=== PATIENT | female | born 1990 | race Caucasian/White ===

== ENCOUNTER 2018-03-02 00:26 | Emergency (ER) | payer OTHER ==
[~2018-03-02] VITALS: Ht 167.6 cm; Wt 99.8 kg
[2018-03-02 00:26] VITALS: BP 132/78
--- NOTE | 2018-03-02 00:26 | NUR ---
BIBA to bed 6. Pt teary eyed, but calm and cooperative. Alert and oriented x 4. Denies physical complaints. Suicide precautions implemented. All belongs removed. All ligature removed from room.
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
[2018-03-02 00:51] LABS: BASOPHILS # (AUTO) 0.1 K/uL (0.00-0.22); BASOPHILS % (AUTO) 0.9 % (0.0-2.0); EOSINOPHILS # (AUTO) 0.3 K/uL (0-0.4); EOSINOPHILS % (AUTO) 2.6 % (0.0-4.0); HEMATOCRIT 41.7 % (36-48); HEMOGLOBIN 14.3 g/dL (12.0-16.0); LYMPHOCYTES % (AUTO) 18.6 % (20.5-51.1); MEAN CORPUSCULAR HEMOGLOBIN 31 pg (27-31); MEAN CORPUSCULAR HGB CONC 34 g/dL (33-37); MEAN CORPUSCULAR VOLUME 89.4 fL (80-94); MONOCYTES # (AUTO) 0.9 K/uL (0.8-1.0); MONOCYTES % (AUTO) 7.8 % (1.7-9.3); NEUTROPHILS # (AUTO) 7.7 K/uL (1.8-7.7); NEUTROPHILS % (AUTO) 70.1 % (42.2-75.2); PLATELET COUNT (AUTO) 329 K/uL (140-450); RED BLOOD CELL COUNT(AUTO) 4.67 MIL/uL (4.20-5.40); RED CELL DISTRIBUTION WIDTH 13.8 % (11.6-13.7); WHITE BLOOD COUNT (AUTO) 10.9 K/uL (4.8-10.8)
[2018-03-02 01:00] LABS: ANION GAP 14.9 (8-16); CARBON DIOXIDE 28.9 mmol/L (21-32); CHLORIDE 105 mmol/L (98-107); CREATININE 0.9 mg/dL (0.6-1.3); GFR ARICAN-AMERICAN 97 mL/min (>90); GLUCOSE 78 mg/dL (74-106); POTASSIUM 3.8 mmol/L (3.5-5.1); SODIUM SERUM 145 mmol/L (136-145); UREA NITROGEN, BLOOD 10 mg/dL (7-18)
[2018-03-02 01:06] LABS: ALBUMIN 3.5 g/dL (3.4-5.0); ASPARTATE AMINOTRANSFERASE 10 U/L (15-37); SALICYLATE < 2.8 mg/dL (2.8-20.0); TOTAL BILIRUBIN 0.5 mg/dL (0.0-1.0)
[2018-03-02 01:07] LABS: ACETAMINOPHEN < 0.5 ug/ml (10-30)
--- NOTE | 2018-03-02 01:34 | NUR ---
Dr. Escalona evaluating patient at bedside.
--- NOTE | 2018-03-02 02:00 | NUR ---
PT IN BED RESTING. DR VOGEL AT BEDSIDE EVALUATING PT. PT IS COOPERATIVE. VSS. CONTINUE TO MONITOR.
[2018-03-02] MEDS ORDERED: buPROPion 75 MG TAB PO ONE (02:20)
[2018-03-02] MEDS ORDERED: LORazepam 0.5 MG TAB PO ONE (02:20)
[2018-03-02 02:37] LABS: APPEARANCE,URINE SL CLOUDY (CLEAR); BILIRUBIN,URINE NEGATIVE (NEGATIVE); BLOOD, URINE NEGATIVE (NEGATIVE); COLOR,URINE YELLOW (YELLOW); LEUKOCYTE ESTERASE ,URINE NEGATIVE (NEGATIVE); NITRITE, URINE NEGATIVE (NEGATIVE); UGLUCOSE NEGATIVE (NEGATIVE)
[2018-03-02 02:43] LABS: BARBITURATE, URINE NEG. ng/ml (NEG <=200); BENZODIAZEPINE, URINE NEG. ng/mL (NEG <=200); CANNABINOID, URINE POS. ng/mL (NEG <=50); COCAINE, URINE NEG. ng/mL (NEG <=300); OPIATE, URINE NEG. ng/mL (NEG <=2000); PHENCYCLIDINE SCREEN,URINE NEG. ng/mL (NEG <=25)
--- NOTE | 2018-03-02 03:00 | NUR ---
PT IN BED RESTING WITH EYES CLOSED. PT IS COOPERATIVE. VSS. CONTINUE TO MONITOR.
--- NOTE | 2018-03-02 04:00 | NUR ---
PT IN BED RESTING WITH EYES CLOSED. VSS. CONTINUE TO MONITOR.
--- NOTE | 2018-03-02 04:11 | NUR ---
[facility] RECEIVED REQUEST FOR ASSISTANCE WITH PLACEMENT. WAITING ON A CALLBACK FROM ED REGISTRATION TO PROCEED.
--- NOTE | 2018-03-02 04:22 | NUR ---
PLACEMENT PACKETS HAVE BEEN SENT TO [facility], [facility], AND [facility]. NO BEDS AVAILABLE AT THIS TIME.
--- NOTE | 2018-03-02 05:00 | NUR ---
PT IN BED RESTING WITH EYES CLOSED. VSS. CONTINUE TO MONITOR.
--- NOTE | 2018-03-02 06:00 | NUR ---
PT IN BED RESTING WITH EYES CLOSED. VSS. CONTINUE TO MONITOR.
--- NOTE | 2018-03-02 07:02 | NUR ---
PT IN BED RESTING WITH EYES CLOSED. VSS. CONTINUE TO MONITOR.
--- NOTE | 2018-03-02 07:29 | NUR ---
RECEIVED REPORT FROM VALERIA FISCHER. Patient appears to be resting comfortably in bed. Vital Signs within normal limits. Respirations even and unlabored.WILL CONTINUE TO MONITOR.
[2018-03-02] MEDS ORDERED: buPROPion 75 MG TAB PO STA (07:41)
--- NOTE | 2018-03-02 07:49 | NUR ---
PT ALERT,OREITED , CALM* COOPERATED. TOOK WELLBUTRIN 75 MG X 2 TAB.
--- NOTE | 2018-03-02 08:00 | NUR ---
FOOD TRAY PROVIDED FOR PT WITH STEROFORM AT THIS TIME.
--- NOTE | 2018-03-02 08:12 | NUR ---
PT ATE BREAKFAST 50% AND WENT TO RESTROOM.
--- NOTE | 2018-03-02 08:18 | NUR ---
PT STATED " I DON'T WANT TO HURTMYSELF OR ANYONE. I DID STUPID THING YESTERDAY".
--- NOTE | 2018-03-02 09:09 | NUR ---
SUBMITTED TELEPSYCH CONSULT REQUEST FOR PT
--- NOTE | 2018-03-02 09:13 | NUR ---
pt agree with tele psych.
--- NOTE | 2018-03-02 10:15 | NUR ---
Patient appears to be resting comfortably in bed. Vital Signs within normal limits. Respirations even and unlabored.
--- NOTE | 2018-03-02 10:49 | NUR ---
DR DUMONT TELEPSY WITH PT.
--- NOTE | 2018-03-02 10:49 | NUR ---
DR DUMONT CALLED IN FOR TELEPSYCH CONSULT
--- NOTE | 2018-03-02 11:26 | NUR ---
CONS[facility]
--- NOTE | 2018-03-02 11:52 | NUR ---
Patient discharged with v/s stable. Written and verbal after care instructions given and explained. Patient alert, oriented and verbalized understanding of instructions. Ambulatory with steady gait. All questions addressed prior to discharge. ID band removed. Patient advised to follow up with PMD. Rx of WELLBUTRIN/VISTARIL given. Patient educated on indication of medication including possible reaction and side effects. Opportunity to ask questions provided and answered.
[2018-03-02 11:53] VITALS: BP 127/79
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
== END 2018-03-02 11:52 | disposition home or self-care (01) ==
LOC: MED 00:26
DX: R45.851 Suicidal ideations (principal); F41.0 Panic disorder [episodic paroxysmal anxiety]; F32.9 Major depressive disorder, single episode, unspecified; F12.90 Cannabis use, unspecified, uncomplicated
CPT/HCPCS: 36415; 80053; 80305; 81003; 81025; 85025; 99285; G0480; G0482